=== PATIENT | male | born 1980 | race Caucasian/White ===

== ENCOUNTER 2021-01-12 05:31 | Emergency (ER) | payer SELFPAY ==
[2021-01-12] MEDS ORDERED: Ciprofloxacin/Dexamethasone 0.3-0.1% Otic Susp 7.5 ML Bottle EARRT STA (06:00)
--- NOTE | 2021-01-12 06:05 | EDM.PDOC ---
ED HPI GENERAL MEDICAL PROBLEM - General Chief Complaint: ENT Problem Stated Complaint: RIGHT EAR PROBLEM Time Seen by Provider: 01/12/21 05:36 Source of Information: Reports: Patient History Limitations: Reports: No Limitations - History of Present Illness INITIAL COMMENTS - FREE TEXT/NARRATIVE: Patient is a 40-year-old male presents today for right ear pain and swelling. Patient swelling started on Wednesday it progressively got worse. Patient denies any drainage from the ear or change in hearing. Patient has any fever chills nausea vomiting. Patient was found to have a blood pressure 230/148 states this is baseline [facility]. Patient is asymptomatic denies any chest pain urinary symptoms change in vision no change in mental status. right ear Pain Score (Numeric/FACES): 6 - Related Data Allergies Allergy/AdvReac Type Severity Reaction Status Date / Time No Known Allergies Allergy Verified 01/12/21 05:47 Home Meds: Home Meds . [Unable to Verify Home Med List] 01/12/21 [History] Past Medical History Cardiovascular History: Reports: Hypertension - Infectious Disease History Infectious Disease History: Reports: Chicken Pox ED ROS ENT - Review of Systems Review Of Systems: See Below Constitutional: Reports: No Symptoms HEENT: Reports: Ear Pain Respiratory: Reports: No Symptoms Endocrine: Reports: No Symptoms GI/Abdominal: Reports: No Symptoms : Reports: No Symptoms Musculoskeletal: Reports: No Symptoms Skin: Reports: No Symptoms Neurological: Reports: No Symptoms Psychiatric: Reports: No Symptoms Hematologic/Lymphatic: Reports: No Symptoms Immunologic: Reports: No Symptoms ED EXAM, ENT - Physical Exam Exam: See Below Exam Limited By: No Limitations General Appearance: Alert, WD/WN, No Apparent Distress Ears: Hearing Grossly Normal, Canal Swelling. No: Mastoid Tenderness Respiratory/Chest: No Respiratory Distress, Lungs Clear Cardiovascular: Normal Peripheral Pulses, Regular Rate, Rhythm GI/Abdominal: Normal Bowel Sounds, Soft, Non-Tender Extremities: Normal Inspection, Normal Range of Motion Neurological: Alert, Oriented, CN II-XII Intact, Normal Cognition, Normal Gait Course - Vital Signs Last Recorded V/S: Last Vital Signs Temp 97.4 F 01/12/21 05:47 Pulse 84 01/12/21 05:47 Resp 18 01/12/21 05:47 BP 249/165 H 01/12/21 05:47 Pulse Ox 96 01/12/21 05:47 - Orders/Labs/Meds Orders: Active Orders 24 hr Category Date Time Status EKG Documentation Completion [RC] STAT Care 01/12/21 05:59 Active BASIC METABOLIC PANEL,BMP [CHEM] Stat Lab 01/12/21 06:10 Received TROPONIN I [CHEM] Stat Lab 01/12/21 06:10 Received UA W/HOMERO RFLX IF INDICATED [URIN] Stat Lab 01/12/21 05:58 Ordered Labs: Laboratory Tests 01/12/21 Range/Units 06:10 WBC 9.55 (4.0-11.0) K/uL RBC 5.35 (4.50-5.90) M/uL Hgb 16.1 (13.0-17.0) g/dL Hct 47.1 (38.0-50.0) % MCV 88.0 (80.0-98.0) fL MCH 30.1 (27.0-32.0) pg MCHC 34.2 (31.0-37.0) g/dL RDW Std Deviation 43.7 (28.0-62.0) fl RDW Coeff of Anmol 14 (11.0-15.0) % Plt Count 230 (150-400) K/uL MPV 9.60 (7.40-12.00) fL Neut % (Auto) 68.4 (48.0-80.0) % Lymph % (Auto) 19.5 (16.0-40.0) % [place] % (Auto) 9.2 (0.0-15.0) % Eos % (Auto) 2.7 (0.0-7.0) % Baso % (Auto) 0.2 (0.0-1.5) % Neut # (Auto) 6.5 H (1.4-5.7) K/uL Lymph # (Auto) 1.9 (0.6-2.4) K/uL [place] # (Auto) 0.9 H (0.0-0.8) K/uL Eos # (Auto) 0.3 (0.0-0.7) K/uL Baso # (Auto) 0.0 (0.0-0.1) K/uL Nucleated RBC % 0.0 /100WBC Nucleated RBCs # 0 K/uL Meds: Medications Discontinued Medications Generic Name Dose Route Start Last Admin Trade Name Rogerio PRN Reason Stop Dose Admin Ciprofloxacin/Dexamethasone 1 ml 01/12/21 06:00 01/12/21 06:18 Ciprofloxacin/Dexamethasone 0.3-0.1% Otic Susp 7.5 Ml Bottle EARRT 01/12/21 06:01 1 ml NOW STA Administration - Re-Assessments/Exams Free Text/Narrative Re-Assessment/Exam: 01/12/21 06:38 Patient remains asymptomatic. Patient is awake place and will be discharged on eardrops patient will be discharged to follow-up with [facility] clinic. Departure - Departure Time of Disposition: 07:05 Disposition: Home, Self-Care 01 Condition: Good Clinical Impression: Otitis externa - Discharge Information *PRESCRIPTION DRUG MONITORING PROGRAM REVIEWED*: Not Applicable *COPY OF PRESCRIPTION DRUG MONITORING REPORT IN PATIENT JACQUELINE: Not Applicable Instructions: Otitis Externa, [id number] Referrals: PCP,Not In Area [Primary Care Provider] - Forms: ED Department Discharge Additional Instructions: The following information is given to patients seen in the emergency department who are being discharged to home. This information is to outline your options for follow-up care. We provide all patients seen in our emergency department with a follow-up referral. The need for follow-up, as well as the timing and circumstances, are variable depending upon the specifics of your emergency department visit. If you don't have a primary care physician on staff, we will provide you with a referral. We always advise you to contact your personal physician following an emergency department visit to inform them of the circumstance of the visit and for follow-up with them and/or the need for any referrals to a consulting specialist. The emergency department will also refer you to a specialist when appropriate. This referral assures that you have the opportunity for follow-up care with a specialist. All of these measure are taken in an effort to provide you with optimal care, which includes your follow-up. Under all circumstances we always encourage you to contact your private physician who remains a resource for coordinating your care. When calling for follow-up care, please make the office aware that this follow-up is from your recent emergency room visit. If for any reason you are refused follow-up, please contact the Emergency Department at and asked to speak to the emergency department charge nurse. Please follow up with your primary care physician. If you do not have a primary care physician, see below: [facility] [address] [place] [address] My [facility] [address] [place] [address] You were seen today for ear pain. You have otitis externa. We have placed a ear wick in your ear that she can place the eardrops inside of help out with the infection. Your blood pressure was extremely high today and made us concerned and we did labs and EKG to make sure that there were no concerning findings. You do not have any symptoms from the elevated blood pressure you tell us that [facility]. You said your blood pressure is normally around this level. Recommend you [facility] to continue monitoring treatment of your blood pressure. Have any chest pain confusion vision changes please return to the ED. Sepsis Event Note (ED) - Evaluation Sepsis Screening Result: No Definite Risk - Focused Exam Vital Signs: Vital Signs Temp Pulse Resp BP Pulse Ox 01/12/21 05:47 97.4 F 84 18 249/165 H 96 - My Orders Last 24 Hours: My Active Orders 01/12/21 05:58 UA W/HOMERO RFLX IF INDICATED [URIN] Stat 01/12/21 05:59 EKG Documentation Completion [RC] STAT 01/12/21 06:10 BASIC METABOLIC PANEL,BMP [CHEM] Stat TROPONIN I [CHEM] Stat - Assessment/Plan Last 24 Hours: My Active Orders 01/12/21 05:58 UA W/HOMERO RFLX IF INDICATED [URIN] Stat 01/12/21 05:59 EKG Documentation Completion [RC] STAT 01/12/21 06:10 BASIC METABOLIC PANEL,BMP [CHEM] Stat TROPONIN I [CHEM] Stat Plan: Patient is a 40-year-old male presents today for ear pain. Patient looks affect otitis externa there will be placed on eardrops and given a ear wick. Patient also has elevated blood pressure but is asymptomatic and states this is baseline. We have no records of patient baseline blood pressure so we will obtain basic labs patient is currently off on blood pressure meds already from his PMD patient remained symptomatic and labs are okay patient will be discharged follow-up with primary care.
[2021-01-12 06:33] LABS: BLOOD UREA NITROGEN,BUN 15 mg/dL (7.0-18.0); CARBON DIOXIDE,CO2 29.2 mmol/L (21.0-32.0); CHLORIDE,CL 102 mmol/L (98-107); GLUCOSE RANDOM 150 mg/dL (74-106); POTASSIUM,K 4.7 mmol/L (3.5-5.1); SODIUM,NA 137 mmol/L (136-148)
== END 2021-01-12 07:00 | disposition home or self-care (01) ==
LOC: MW.ED 05:31
DX: H60.91 Unspecified otitis externa, right ear (principal); I10 Essential (primary) hypertension
CPT/HCPCS: 36415; 80048; 84484; 85025; 93005; 99283; A9270